=== PATIENT | female | born 2000 | race Caucasian/White ===

== ENCOUNTER 2019-01-31 08:35 | Emergency (ER) | payer BC ==
[2019-01-31 08:42] VITALS: BP 109/67
[2019-01-31] MEDS ORDERED: IBUPROFEN 600 MG TAB PO ONE (08:43)
--- NOTE | 2019-01-31 09:12 | EDPHY ---
H & P Stated Complaint: tripped last night l ankle inj Source: Patient Exam Limitations: No limitations - Personal History LMP (Females 10-55): Extended Cycle BCP/Inj Current Tetanus Diphtheria and Acellular Pertussis (TDAP): Yes - Medical/Surgical History Hx Asthma: No Hx Chronic Respiratory Disease: No Hx Diabetes: No Hx Cardiac Disease: No Hx Renal Disease: No Hx Cirrhosis: No Hx Alcoholism: No Hx HIV/AIDS: No Hx Splenectomy or Spleen Trauma: No Other PMH: skin graft //hand - Social History Smoking Status: Never smoked Time Seen by Provider: 01/31/19 09:06 HPI/ROS: HPI: This is a 19-year-old female who presents with Chief Complaint: tripped last night l ankle inj Location: Left lateral ankle Quality: Injury Duration: Last night Signs and Symptoms: No bleeding, no radiation, no numbness, no weakness, no tingling, no incontinence, + decreased range of motion, + swelling, + pain, no fever Timing: Acute Severity: Moderate Context: Patient is a student at [employer], admits to drinking alcohol last night and wearing high heels when she tripped and everted her left ankle. She reports that she felt immediate, constant, moderate pain but was able to make her way home. She woke up this morning and noted moderate swelling in the lateral aspect of her left ankle. She complains of constant, moderate pain that is worsened with weight-bearing. Denies LOC/head injury/ neck pain/dizziness/nausea/vomiting/amnesia. Patient reports that she has seen Dr. Ford last year for skin graft of her hand. Patient denies any other injuries. She took an Uber to the emergency room. Modifying Factors: Not applied ice or taking [id number] pain medication Comment: ROS: A comprehensive 10 system review of systems is otherwise negative aside from elements mentioned in the history of present illness. MEDICAL/SURGICAL/SOCIAL HISTORY: Medical history: Generally healthy. Takes control pills. Surgical history: Skin graft of hand Social history: Student at [employer]. Social alcohol use. Part-time employment as a waiter/waitress tourist class. CONSTITUTIONAL: Tearful, anxious young adult white female, awake and alert, no obvious distress HEENT: Atraumatic and normocephalic. NECK: supple, no midline tenderness, flexion 45 degrees, extension 45 degrees, right and left lateral flexion 45 degrees. No meningismus. Cardiovascular: Normal S1/S2, regular rate, regular rhythm, without murmur rub or gallop. PULMONARY/CHEST: Symmetrical and nontender. no crepitus. Clear to auscultation bilaterally. Good air movement. No accessory muscle usage. ABDOMEN: Soft, nondistended, nontender, no ecchymosis. EXTREMITIES: 2/2 pulses, strength 5/5, left Ankle: Moderate lateral malleolus swelling; Plantar flexion decreased to 25, dorsiflexion to 20. Foot inversion decreased to 15 degree. Mild tenderness/swelling Anterior talofibular ligament. Mild tenderness/swelling Calcaneofibular ligament, mild tenderness/swelling posterior talofibular ligament, mild tenderness/swelling posterior inferior tibiofibular ligament. Achilles tendon intact. DIP/PIP/MCP flexion/extension intact with good light touch sensation. no deformities, no clubbing, no cyanosis or edema. NEUROLOGICAL: no focal neuro deficits. GCS 15. Light touch sensation intact. SKIN: Warm and dry, no erythema. no rash. Good capillary refill. (Lizbeth Mullen) Constitutional: Initial Vital Signs Temperature (C) 36.5 C 01/31/19 08:39 Heart Rate 82 01/31/19 08:39 Respiratory Rate 18 01/31/19 08:39 Blood Pressure 109/67 01/31/19 08:39 O2 Sat (%) 97 01/31/19 08:39 O2 Delivery Mode Room Air Allergies/Adverse Reactions: No Known Allergies Allergy (Unverified 01/31/19 08:38) Home Medications: Medication Instructions Recorded Lo Loestrin Fe 1-10 Tablet 01/31/19 Prozac 10 MG (*) 01/31/19 VYVANSE 01/31/19 oxyCODONE/APAP 5/325 [Percocet 1 - 2 tab PO Q4H PRN #10 tab 01/31/19 5/325 (*)] Medical Decision Making Procedures: Procedure: Splint placement. A 3 way Ortho Glass short-leg splint was applied by the orthotic finish grinding technician. After application of the splint I returned and re-examined the patient. The splint was adequately immobilizing the joint and distal to the splint the patient's circulation and sensation was intact. (Lizbeth Mullen) The patient was evaluated and managed by the physician medical assistant instructor. I have reviewed this chart and I agree with the findings and plan of care as documented , as indicated by my signature. I am the secondary supervising physician. ( Charley Alegria) ED Course/Re-evaluation: Vital signs reviewed and stable upon arrival. Fall was mechanical in nature. Concern for minimally displaced distal medial tibial fracture without disruption of the ankle mortise. Placed in [address] Ortho Glass short-leg splint, crutches Patient has seen Dr. Ford's last year and wishes to follow up with him again. Work excuse provided per request. No signs of neurovascular compromise/tenting of skin/compartment syndrome/ extremities and joints examined above and below area of concern and are neurovascularly intact. This patient was seen under the supervision of my secondary supervising physician. I evaluated care for this patient independently. (Lizbeth Mullen) Differential Diagnosis: Ankle injury differential diagnosis includes but is not limited to tibia fracture, fibula fracture, metatarsal fracture, LisFranc fracture, achilles tendon rupture, sprain. (Lizbeth Mullen) - Data Points Medications Given: Discontinued Medications Ibuprofen (Motrin) 600 mg PO EDNOW ONE Stop: 01/31/19 08:44 Last Admin: 01/31/19 08:46 Dose: 600 mg Departure - Departure Disposition: Home, Routine, Self-Care Clinical Impression: Closed fracture of left distal tibia Condition: Good Instructions: Ankle Fracture (ED), Crutch Instructions (ED), Splint Care (ED) Additional Instructions: Keep the splint dry and in place until seen by Orthopedics. Take Tylenol 650 mg every 4 hours and/or Ibuprofen 600 mg every 8 hours with food as needed for pain. Use Percocet every 6 hours as needed for severe/break through pain. Do not use Tylenol and Percocet concomitantly. Keep the left lower leg elevated as much as possible to reduce swelling. Apply ice for 30 minutes at a time; 2-3 times per day for the next 1-2 days. Follow up with Orthopedics in 5-7 days at which time they will evaluate and recommend with you if conservative management versus surgery is indicated. Referrals: Jericho Ford MD [Medical Doctor] - As per Instructions Stand Alone Forms: Work Excuse Prescriptions: oxyCODONE/APAP 5/325 [Percocet 5/325 (*)] 1 - 2 tab PO Q4H PRN #10 tab PRN Reason: Pain, Severe
== END 2019-01-31 09:39 | disposition home or self-care (01) ==
PROC: 2W3RX1Z Immobilization of Left Lower Leg using Splint (ICD-10-PCS; principal; 2019-01-31)
DX: S82.392A Other fracture of lower end of left tibia, initial encounter for closed fracture (principal); X50.1XXA Overexertion from prolonged static or awkward postures, initial encounter; Y92.9 Unspecified place or not applicable; Y99.9 Unspecified external cause status; Y93.9 Activity, unspecified